=== PATIENT | female | born 1960 | race Caucasian/White ===

== ENCOUNTER → 2021-08-02 15:43 | Outpatient (CLI) | payer OTHER, SELFPAY ==
--- NOTE | 2021-08-02 15:44 | DI.MRI.S_ITS ---
PROCEDURE: MR CERVICAL SPINE WO CON INDICATIONS: CERVICAL RADICULOPATHY TECHNIQUE: Noncontrast sagittal T1 spin echo and T2 fast spin echo, sagittal STIR, foraminal oblique sagittal T2 fast spin echo, and axial gradient echo or T2 fast spin echo through the cervical spine. COMPARISON: None. FINDINGS: Image quality: Excellent. Alignment and Curvature: Trace degenerative retrolisthesis of C3 on C4. Trace degenerative retrolisthesis of C4 on C5. Trace degenerative anterolisthesis of C6 on C7. Bone Marrow: Marrow demonstrates normal overall signal. Spinal Cord: Visualized spinal cord has normal size and signal. No cerebellar tonsillar herniation. Paraspinous Soft Tissues: No paravertebral masses. Prevertebral soft tissues are normal in thickness. C2-C3: No canal stenosis or foraminal stenosis. C3-C4: Moderate chronic disc height loss. No canal stenosis. Bilateral uncovertebral joint hypertrophy. Bilateral facet hypertrophy. Moderate to severe bilateral foraminal narrowing with bilateral C4 nerve root impingement. C4-C5: Mild disc bulge. No canal stenosis. Bilateral uncovertebral joint hypertrophy. Bilateral facet hypertrophy. Severe bilateral foraminal narrowing with bilateral foraminal C5 nerve root impingement. C5-C6: Moderate chronic disc height loss. Diffuse disc bulge. Bilateral uncovertebral joint hypertrophy. Disc material abuts the ventral cord. There is mild canal stenosis. There is severe right foraminal narrowing with right C6 foraminal nerve root impingement. There is moderate to severe left foraminal narrowing with flattening deformity on the exiting left C6 nerve root. C6-C7: Moderate chronic disc height loss. Diffuse posterior disc plus osteophyte. This is eccentric to the right. There is indentation on the right ventral cord. There is lloc-nw-[id number] canal stenosis. There is [id number]-fp-[id number] bilateral foraminal narrowing. C7-T1: No canal stenosis or foraminal stenosis. IMPRESSION: 1. Diffuse cervical spondylitic change with multilevel disc height loss, uncovertebral joint hypertrophy, and facet arthropathy. 2. Canal stenosis is mild at C5-C6 and [id number] at C6-C7. 3. Significant multilevel foraminal narrowing as described above. This includes moderate to severe bilateral foraminal narrowing at C3-C4, severe bilateral foraminal narrowing at C4-C5, and severe right and moderate to severe left foraminal narrowing at C5-C6. Dictated by: Teo Horton M.D. on 08/02/2021 at 16:44 Approved by: Teo Horton M.D. on 08/02/2021 at 16:52
== END ==
PROVIDERS: Family Provider Nurse Practitioner Acute Care; PCP Family Medicine; Referring Provider Physical Medicine & Rehabilitation; Visit Provider Physical Medicine & Rehabilitation
DX: M47.22 Other spondylosis with radiculopathy, cervical region (principal); M48.02 Spinal stenosis, cervical region
CPT/HCPCS: 72141

== ENCOUNTER 2021-10-19 09:05 | Outpatient (CLI) | payer OTHER, SELFPAY ==
[2021-10-19] VITALS (10 sets, daily range): BP systolic 78–138; BP diastolic 47–78; PULSE 81–96; RESP 14–20; TEMP 36.7; O2SAT 93–98
--- NOTE | 2021-10-19 09:06 | DI.RAD.S_ITS ---
PROCEDURE: PAIN C/T INTERLAMINAR INJECT INDICATIONS: SPINAL STENOSIS COMPARISON: , MR, MR CERVICAL SPINE WO CON, 08/02/2021, 15:51. FINDINGS: Fluoroscopic spot filming was performed to verify placement of a spinal needle at the C6-C7 level, as labeled on the films. Appropriate location of the needle tip was confirmed by injection of iodinated contrast. IMPRESSION: No significant intraprocedural abnormality. Dictated by: Javi Kyle M.D. on 10/19/2021 at 10:21 Approved by: Javi Kyle M.D. on 10/19/2021 at 10:21
[2021-10-19] MEDS: fentaNYL 100 MCG/2 ML INJ 50 MCG IV (10:17)
[2021-10-19] MEDS: IOPAMIDOL 15 ML VIAL 3 ML INJ (10:24)
[2021-10-19] MEDS: DEXAMETHASONE 10 MG/ML VIAL 30 MG INJ (10:25)
[2021-10-19] MEDS: MIDAZOLAM 5 MG/5 ML VIAL IV (10:25)
[2021-10-19] MEDS: BUPIVACAINE 0.25% (PF) VIAL 2 ML INJ (10:25)
--- NOTE | 2021-10-19 10:49 | PM.PROC.IR.1 ---
Date/Time/Diagnoses Date of procedure: 10/19/21 Time of procedure: 10:49 Pre-procedure diagnosis: 1. CERVICAL STENOSIS, 2. CERVICAL HNP WITH UPPER EXTREMITY RADICULAR FEATURES This procedure is found to meet the Governor's proclamation 20-24.2 regarding non urgent procedures. This patient meets multiple criteria for the procedure including continuing or worsening of significant or severe pain, combined with further deterioration of the patient's condition or overall health as well as delay in treatment would be expected to result in less positive ultimate medical outcome. Therefore the decision to perform the procedure in an outpatient hospital setting is found to be in accordance with guidelines of the proclamation. Post-procedure diagnosis: same Procedure Notes Procedure: 1. FLUORSCOPICALLY GUIDED CONTRAST CONTROLLED INTERLAMINAR EPIDURAL STEROID INJECTION - C6/7 TL SILVANA Indications: Cha is referred by Dr. Varner for treatment of Cervical HNP with Upper Extremity Paresthesias. Physician: Jamal White Total Fluoroscopy time (seconds): 27 Total sedation minutes: 16 Complications: none Procedure in detail & Post-procedure care: FINDINGS Cervical Stenosis due to disc deterioration and nerve root irritation and nerve root irritation DESCRIPTION OF PROCEDURE Fluoroscopically guided, contrast-controlled C6/7 translaminar epidural steroid injection with conscious sedation. Following review of allergy and review of potential side effects and complications, including, but not necessarily limited to, infection, allergic reaction, local tissue breakdown, temporary as well as permanent nerve injury, stroke, paralysis, and possible , the patient indicated that patient understood and agreed to proceed. An informed consent document was signed by the patient, witnessed by a nurse, and placed in the patient's chart. Additionally, other treatment options including modalities, medications, and physical therapy were reviewed with the patient. After review of previous anaesthesic history and IV conscious sedation the patient was deemed safe to proceed with today?s procedure with IV conscious sedation as ASA class II designation. Safety time-out was performed to confirm patient ID, procedure to be performed and site of procedure. IV sedation was accomplished with a combination of 4mg of Versed and 50mcg of Fentanyl administered by the RN after DO order, titrated to patient comfort during the course of the procedure while the patient remained responsive to all verbal commands. In the prone position, following sterile prep and drape of the cervical region, the C6/7 translaminar space was identified fluoroscopically. The skin was anesthetized via a 25-gauge 1.5-inch needle with 1% lidocaine solution. At this point, a 25-gauge, 2.5-inch short bevel spinal needle was atraumatically introduced and advanced under fluoroscopic guidance into epidural space at the C6/7 translaminar space. Depth was confirmed on lateral view. Radiological data, including multiple fluoroscopic views of the cervical spine, reveal a spinal needle at the C6/7 translaminar space. Lateral views then show placement of the needle in the epidural space. Subsequent views show contrast material flowing superiorly and inferiorly in the epidural space. DSA fluoroscopy with live contrast injection, once again, confirmed no vascular or intrathecal uptake. At this point, using loss of resistance technique with saline and air, the epidural space was entered. Following negative aspiration, injection of approximately 1.5 cc of Isovue-200 with live fluoroscopy in the AP view confirmed epidural flow in the epidural space without vascular or intrathecal uptake observed. Subsequently, a test dose of 1 cc of 1% lidocaine solution was injected and patient was observed for two minutes without signs or symptoms of complications, including abdominal pain, shortness of breath, bilateral upper or lower extremity weakness, nausea and vomiting, prior to steroid injection. At this point, 3cc or 30mg of dexamethasone was then injected without incident. The patient tolerated the procedure well without signs or symptoms of complications prior to being transferred to the recovery area for further monitoring, The patient was then transferred to the recovery area where they were observed for an appropriate period of time after the injection. The patient reported a VAS score of 6 prior to the procedure and a post-procedure VAS of 0. POST OP INSTRUCTIONS The patient was provided a Pain Log to continue to record their response to the target-specific procedure prior to follow-up visit with the referring provider. Additionally, specific post-injection care instructions and a contact number to our office were provided if concerns arise regarding possible complications associated with the procedure are suspected.
== END 2021-10-19 11:09 | disposition home or self-care (01) ==
PROVIDERS: Family Provider Nurse Practitioner Acute Care; PCP Family Medicine; Referring Provider Physical Medicine & Rehabilitation; Visit Provider Physical Medicine & Rehabilitation
DX: M48.02 Spinal stenosis, cervical region (principal); M50.123 Cervical disc disorder at C6-C7 level with radiculopathy
CPT/HCPCS: 62321; 99152; J1100; J2250; J3010